=== PATIENT | female | born 1950 | race Two or more races ===

== ENCOUNTER 2016-08-18 10:08 | Emergency (ER) | payer MEDICARE, MEDICAID ==
[~2016-08-18] VITALS: Ht 157.5 cm; Wt 56.7 kg
[2016-08-18 10:33] VITALS: BP 145/68
== END 2016-08-18 10:57 | disposition home or self-care (01) ==
LOC: ER 10:14
DX: J02.9 Acute pharyngitis, unspecified (principal); Z88.6 Allergy status to analgesic agent